=== PATIENT | male | born 1965 | race Caucasian/White ===

== ENCOUNTER → 2021-02-27 | Outpatient (CLI) | payer OTHER ==
--- NOTE | 2021-02-27 12:34 | RAD ---
3 views lumbar spine 02/27/2021 INDICATION: Low back pain COMPARISON STUDY: None FINDINGS: No evidence of acute fracture or alignment abnormality is identified. Vertebral body height s are maintained. There is significant loss of disc space at L4-L5. There is also grade 1 anterolisth esis of L4 on L5. Some rotation is noted. Definitive spondylolysis is not identified radiographically but difficult to completely exclude. There is disc space loss at L5-S1 and possible neural foraminal narrowing secondary to facet arthrosis, and possibly a component of congenital shortening of pedicle s. No acute soft tissue changes are identified. IMPRESSION: 1.No evidence of acute osseous of abnormality 2. Degenerative changes of the lumbar spine most prominent at L4-L5 and L5-S1 as described. Consider MRI for better more detailed characterization Electronically signed by: Da Young MD (02/27/2021 12:32 PM) [id number]
== END ==
LOC: RAD 10:38
PROVIDERS: ATTEND Anesthesiology Pain Medicine
DX: M47.817 Spondylosis without myelopathy or radiculopathy, lumbosacral region (principal); M43.17 Spondylolisthesis, lumbosacral region; M51.27 Other intervertebral disc displacement, lumbosacral region
CPT/HCPCS: 72100